=== PATIENT | female | born 1965 | race Two or more races ===

== ENCOUNTER 2024-11-10 09:30 | Day surgery (SDC) | payer OTHER ==
[2024-11-09 12:02] LABS: COVID-19 AG NEGATIVE (NEGATIVE)
[2024-11-09 12:31] VITALS: BP 132/83
[~2024-11-10 09:30] MED LIST: BUPROPION XL300 MG PO; CLONAZEPAM1 MG PO; HORIZANT300 MG PO; IRBESARTAN150 MG PO; PROVIGIL100 MG PO; RISPERDAL1 MG PO; ROSUVASTATIN CA10 MG PO
[2024-11-10] MEDS ORDERED: CIPROFLOXACIN IN 5 % DEXTROSE 400 MG/200 ML PIGGYBAG IV ONE (09:57)
[2024-11-10] MEDS ORDERED: CHLORHEXIDINE GLUCONATE 120 ML BOTTLE TOP ONE (11:44)
== END 2024-11-10 16:25 | disposition home or self-care (01) ==
LOC: CIR.AMB 09:30
PROVIDERS: ATTEND Surgery
DX: D48.62 Neoplasm of uncertain behavior of left breast (principal); D24.2 Benign neoplasm of left breast; R92.1 Mammographic calcification found on diagnostic imaging of breast; N60.82 Other benign mammary dysplasias of left breast; Z88.2 Allergy status to sulfonamides; Z88.0 Allergy status to penicillin